=== PATIENT | female | born 1975 | race Caucasian/White ===

== ENCOUNTER 2017-06-28 17:28 | Emergency (ER) | payer OTHER ==
[~2017-06-28] VITALS: Ht 165.1 cm; Wt 81.8 kg
[2017-06-28 17:42] LABS: GLUCOSE,POINT OF CARE 339 MG/DL (70-110)
[2017-06-28] MEDS ORDERED: SODIUM CHLORIDE 0.9% 1,000 ML IV ONE ×2 (19:00→20:30)
[2017-06-28] MEDS ORDERED: ACETAMINOPHEN 325 MG TABLET PO ONE (19:00)
[2017-06-28 19:23] LABS: HEMATOCRIT 37.7 % (36-46); HEMOGLOBIN 13.1 g/dL (12.0-16.0); MEAN CORPUSCULAR HEMOGLOBIN 31.8 pg (26.0-34.0); MEAN CORPUSCULAR HGB CONC 34.7 G/dL (31.0-37.0); MEAN CORPUSCULAR VOLUME 92 fL (80-100); PLATELET COUNT (AUTO) 255 K/uL (150-450); RED BLOOD CELL COUNT(AUTO) 4.11 MIL/uL (4.00-5.20); RED CELL DISTRIBUTION WIDTH 12.7 % (11.5-14.5); WHITE BLOOD COUNT (AUTO) 13.4 K/uL (4.5-11.0)
[2017-06-28 19:37] LABS: ALBUMIN 3.3 g/dL (3.4-5.0); BILIRUBIN,TOTAL 1.5 mg/dL (0.1-1.0); CALCIUM, TOTAL 8.6 mg/dL (8.8-10.5); CREATININE 1.02 mg/dL (0.60-1.30); POTASSIUM 3.7 mmol/L (3.5-5.1); TOTAL PROTEIN, SERUM 7.2 g/dL (6.4-8.2)
[2017-06-28 19:55] LABS: BAND NEUTROPHILS % (MANUAL) 29 % (1-5); LYMPHOCYTES % (MANUAL) 4 % (22-44); RBC MORPHOLOGY COMMENT NORMAL RBC MORPH; TOTAL CELLS COUNTED 100
[2017-06-28 20:12] LABS: INFLUENZA TYPE B NEGATIVE FOR TYPE B (NEGATIVE)
[2017-06-28] MEDS ORDERED: SODIUM CHLORIDE 0.9% 1,000 ML IV STA (20:21)
[2017-06-28] MEDS ORDERED: CefTRIAXone 1 GM/DEXTROSE 50 ML IV ONE (20:30)
[2017-06-28] MEDS ORDERED: 0.9% SODIUM CHLORIDE 10 ML SYRINGE IVP PRN (20:30)
[2017-06-28] MEDS: VANCOMYCIN HCL 1 GM/D5% WATER 200 ML IV ONE ×2 (20:39→20:49)
[2017-06-28 20:56] LABS: APPEARANCE,URINE TURBID (CLEAR); GLUCOSE, URINE (UA) >=1000 mg/dL (NEGATIVE); KETONES,URINE TRACE mg/dL (NEGATIVE); LEUKOCYTE ESTERASE ,URINE MODERATE (NEGATIVE); OCCULT BLOOD,URINE LARGE (NEGATIVE); PH,URINE 5.5 (5.0-8.0); PROTEIN,URINE SEE CONFIRM (NEGATIVE)
[2017-06-28 21:09] LABS: SQUAMOUS EPITHELIAL CELL,UR Few /LPF (None Seen); SULFOSALICYLIC ACID,URINE 3+ (Negative); WBC,URINE 26-50 /HPF (0-5)
[2017-06-28 21:15] LABS: PROTHROMBIN TIME 10.6 SEC (9.4-11.6)
[2017-06-28] MEDS ORDERED: VANCOMYCIN HCL 1.5 GM in DEXTROSE 5%-WATER 250 ML IV ONE (21:30)
[2017-06-28] MEDS ORDERED: VANCOMYCIN HCL IV ONE (21:45)
[2017-06-28] MEDS ORDERED: SODIUM CHLORIDE 0.9% IV ONE (21:45)
[2017-06-28 22:35] VITALS: BP 124/75
[2017-06-28 23:02] LABS: GLUCOSE COMMENT 1 Doctor Notified; GLUCOSE,POINT OF CARE 458 MG/DL (70-110)
== END 2017-06-28 23:26 | disposition short-term general hospital (02) ==
LOC: EMS 17:30
DX: A41.9 Sepsis, unspecified organism (principal); N39.0 Urinary tract infection, site not specified; M79.1 Myalgia; E11.9 Type 2 diabetes mellitus without complications; I10 Essential (primary) hypertension; Z88.5 Allergy status to narcotic agent
CPT/HCPCS: 36415; 71010; 80053; 81001; 82962; 83605; 84703; 85025; 85610; 87040; 87077; 87086; 87186; 87804; 93005; 96361; 96365; 96366; 96368; 99291; J0696; J3370 ×2; J7030; J7050; J7060

== ENCOUNTER 2019-11-29 14:28 | Inpatient (IN) | payer OTHER ==
[~2019-11-29] VITALS: Ht 165.1 cm; Wt 92.0 kg
[2019-11-29] MEDS ORDERED: LISI-661 PO (14:41)
[2019-11-29] MEDS ORDERED: INSLAN SQ (14:41)
[2019-11-29] MEDS ORDERED: SODIUM CHLORIDE 0.9% 2,450 ML IV ONE (15:32)
[2019-11-29] MEDS ORDERED: ACETAMINOPHEN 1000 MG/ISO-OSM 100 ML IV ONE (15:45)
[2019-11-29] MEDS ORDERED: METOCLOPRAMIDE HCL 5 MG/ML 2 ML VIAL IVP ONE (15:45)
[2019-11-29] MEDS ORDERED: 0.9% SODIUM CHLORIDE 10 ML SYRINGE IVP PRN ×2 (15:45→20:00)
[2019-11-29 16:16] LABS: BASOPHILS % (AUTO) 0.2 % (0.0-2.0); EOSINOPHILS % (AUTO) 0 % (1.0-6.0); HEMATOCRIT 32.6 % (36-46); HEMOGLOBIN 10.8 g/dL (12.0-16.0); LYMPHOCYTES # (AUTO) 0.7 K/uL (1.0-4.8); LYMPHOCYTES % (AUTO) 22.1 % (22.0-44.0); MEAN CORPUSCULAR HEMOGLOBIN 30.2 pg (26.0-34.0); MEAN CORPUSCULAR VOLUME 91 fL (80-100); MONOCYTES # (AUTO) 0.3 K/uL (0.1-1.0); MONOCYTES % (AUTO) 8.5 % (2.0-9.0); NEUTROPHILS # (AUTO) 2.3 K/uL (1.8-7.7); NEUTROPHILS % (AUTO) 69.2 % (40.0-70.0); PLATELET COUNT (AUTO) 226 K/uL (150-450); RED BLOOD CELL COUNT(AUTO) 3.57 MIL/uL (4.00-5.20); RED CELL DISTRIBUTION WIDTH 12.4 % (11.5-14.5)
[2019-11-29] MEDS ORDERED: SODIUM CHLORIDE 0.9% 500 ML IV ONE (16:19)
[2019-11-29 16:28] LABS: PROTHROMBIN TIME 10.4 SEC (9.4-11.6)
[2019-11-29 16:32] LABS: ANION GAP 7 mmol/L (8-16); CALCIUM, TOTAL 8.3 mg/dL (8.8-10.5); CARBON DIOXIDE 31 mmol/L (22-29); CHLORIDE 97 mmol/L (98-107); CREATININE 0.71 mg/dL (0.60-1.30); GLOMERULAR FILTR. RATE CALC > 60 mL/min (>60); GLUCOSE,RANDOM 213 mg/dL (70-110); POTASSIUM 3.9 mmol/L (3.5-5.1); SODIUM SERUM 135 mmol/L (136-145); UREA NITROGEN, BLOOD 12 mg/dL (7-18)
[2019-11-29 16:40] LABS: LACTIC ACID 0.9 mmol/L (0.4-2.0)
[2019-11-29 16:45] LABS: PLATELET MORPHOLOGY COMMENT LARGE PLTS PRESENT
[2019-11-29 16:54] LABS: ALANINE AMINOTRANSFERASE 44 U/L (12-78); ALBUMIN 3.1 g/dL (3.4-5.0); ALKALINE PHOSPHATASE 102 U/L (46-116); ASPARTATE AMINOTRANSFERASE 25 U/L (15-37); BILIRUBIN,TOTAL 0.8 mg/dL (0.1-1.0); CREATINE KINASE, TOTAL ONLY 126 U/L (26-192); HCG,QUANTITATIVE 1 mIU/mL (0-6); LACTATE DEHYDROGENASE 280 U/L (81-234); TOTAL PROTEIN, SERUM 7.2 g/dL (6.4-8.2)
[2019-11-29 16:59] LABS: INFLUENZA TYPE A NEGATIVE FOR TYPE A (NEGATIVE); INFLUENZA TYPE B NEGATIVE FOR TYPE B (NEGATIVE)
[2019-11-29] MEDS ORDERED: AZITHROMYCIN 500 MG/NS 250 ML IV ONE (17:00)
[2019-11-29] MEDS ORDERED: CefTRIAXone 1 GM/DEXTROSE 50 ML IV ONE (17:00)
[2019-11-29] MEDS ORDERED: SODIUM CHLORIDE 0.9% 100 ML ONE (17:03)
[2019-11-29] MEDS ORDERED: IOVERSOL 350 MG/ML 100 ML VIAL ONE (17:04)
[2019-11-29 17:28] LABS: B-TYPE NATRIURETIC PEPTIDE 12 pg/mL (0-100)
[2019-11-29 17:29] LABS: D-DIMER 0.65 mg/L FEU (0.00-0.50)
[2019-11-29 17:31] LABS: C-REACTIVE PROTEIN QUANT 4.42 mg/dL (0.00-0.30); FERRITIN 87 ng/mL (8-252)
[2019-11-29 19:37] LABS: APPEARANCE,URINE CLEAR (CLEAR); GLUCOSE, URINE (UA) 100 mg/dL (NEGATIVE); KETONES,URINE 40 mg/dL (NEGATIVE); LEUKOCYTE ESTERASE ,URINE NEGATIVE (NEGATIVE); NITRATE,URINE NEGATIVE (NEGATIVE); OCCULT BLOOD,URINE NEGATIVE (NEGATIVE); PH,URINE 6.5 (5.0-8.0); PROTEIN,URINE SEE CONFIRM (NEGATIVE)
[2019-11-29 19:39] LABS: BILIRUBIN,URINE PRELIM. POSITIVE (NEGATIVE)
[2019-11-29 19:42] LABS: GLUCOSE,POINT OF CARE 186 MG/DL (70-110)
[2019-11-29 19:56] LABS: BACTERIA,URINE Rare /HPF (None Seen); RBC,URINE None Seen /HPF (0-2); SQUAMOUS EPITHELIAL CELL,UR Few /LPF (None Seen); SULFOSALICYLIC ACID,URINE 3+ (Negative); WBC,URINE 0-2 /HPF (0-5); YEAST,URINE None Seen /HPF (None Seen)
[2019-11-29] MEDS ORDERED: ACETAMINOPHEN 325 MG TABLET PO PRN (20:00)
[2019-11-29 20:44] LABS: GLUCOSE,POINT OF CARE 155 MG/DL (70-110)
[2019-11-29 22:36] VITALS: BP 147/86
[2019-11-29 23:12] LABS: GLUCOMETER DEV NAME(LOC) 5N.1; GLUCOSE,POINT OF CARE 181 MG/DL (70-110)
[2019-11-30] MEDS ORDERED: DEXTROSE 50%-WATER 25 GM/50 ML SYRINGE IVP PRN (02:45)
[2019-11-30] MEDS ORDERED: MAGNESIUM HYDROXIDE SUSPENSION 30 ML UDCUP PO PRN (02:45)
[2019-11-30] MEDS ORDERED: 0.9% SODIUM CHLORIDE 10 ML SYRINGE IVP PRN (02:45)
[2019-11-30] MEDS: HYDROXYCHLOROQUINE SULFATE 200 MG TABLET PO SCH ×2 (04:25→20:58)
[2019-11-30 04:29] VITALS: BP 125/61
[2019-11-30] MEDS: INSULIN LISPRO 100 UNITS/ML SQ PRN ×4 (05:43→21:19)
[2019-11-30 07:04] VITALS: BP 139/77
[2019-11-30 07:30] LABS: BASOPHILS % (AUTO) 0.3 % (0.0-2.0); EOSINOPHILS % (AUTO) 0.2 % (1.0-6.0); HEMATOCRIT 29.8 % (36-46); LYMPHOCYTES # (AUTO) 1.1 K/uL (1.0-4.8); LYMPHOCYTES % (AUTO) 29.9 % (22.0-44.0); MEAN CORPUSCULAR HEMOGLOBIN 30.9 pg (26.0-34.0); MEAN CORPUSCULAR HGB CONC 33.6 G/dL (31.0-37.0); MEAN CORPUSCULAR VOLUME 92 fL (80-100); MONOCYTES # (AUTO) 0.4 K/uL (0.1-1.0); MONOCYTES % (AUTO) 11.5 % (2.0-9.0); NEUTROPHILS # (AUTO) 2.1 K/uL (1.8-7.7); NEUTROPHILS % (AUTO) 58.1 % (40.0-70.0); PLATELET COUNT (AUTO) 200 K/uL (150-450); RED BLOOD CELL COUNT(AUTO) 3.24 MIL/uL (4.00-5.20); RED CELL DISTRIBUTION WIDTH 12.5 % (11.5-14.5)
[2019-11-30 08:01] LABS: ANION GAP 8 mmol/L (8-16); CARBON DIOXIDE 27 mmol/L (22-29); CHLORIDE 102 mmol/L (98-107); CREATININE 0.53 mg/dL (0.60-1.30); GLUCOSE,RANDOM 203 mg/dL (70-110); POTASSIUM 3.4 mmol/L (3.5-5.1); SODIUM SERUM 137 mmol/L (136-145); UREA NITROGEN, BLOOD 11 mg/dL (7-18)
[2019-11-30 08:02] LABS: ALANINE AMINOTRANSFERASE 37 U/L (12-78); ALBUMIN 2.6 g/dL (3.4-5.0); ALKALINE PHOSPHATASE 86 U/L (46-116); ASPARTATE AMINOTRANSFERASE 24 U/L (15-37); BILIRUBIN,TOTAL 0.6 mg/dL (0.1-1.0); CALCIUM, TOTAL 7.4 mg/dL (8.8-10.5); GLOMERULAR FILTR. RATE CALC > 60 mL/min (>60); TOTAL PROTEIN, SERUM 6.3 g/dL (6.4-8.2)
[2019-11-30] MEDS ORDERED: DOCUSATE SODIUM 100 MG CAPSULE PO SCH (09:00)
[2019-11-30] MEDS ORDERED: FAMOTIDINE 10 MG/ML 2 ML VIAL IVP SCH (09:00)
[2019-11-30] MEDS: HEPARIN SODIUM,PORCINE 5,000 UNITS/ML VIAL SQ SCH ×2 (09:02→20:58)
[2019-11-30] MEDS: ZINC SULFATE 220 MG CAPSULE PO SCH (09:02)
[2019-11-30] MEDS: ACETAMINOPHEN 325 MG TABLET PO PRN ×3 (09:08→20:57)
[2019-11-30] MEDS ORDERED: DOCUSATE SODIUM 100 MG CAPSULE PO PRN (10:30)
[2019-11-30] MEDS ORDERED: POTASSIUM CHLORIDE 20 MEQ ER TABLET PO PRN (11:00)
[2019-11-30] MEDS ORDERED: POTASSIUM CHL 10 MEQ/WATER 50 ML IV PRN (11:00)
[2019-11-30 11:02] VITALS: BP 144/72
[2019-11-30] MEDS: CefTRIAXone 1 GM/DEXTROSE 50 ML IV SCH (12:04)
[2019-11-30 15:59] VITALS: BP 153/78
[2019-11-30] MEDS: ONDANSETRON HCL 4 MG/2 ML VIAL IVP PRN ×2 (16:31→23:53)
[2019-11-30] MEDS: AZITHROMYCIN 500 MG/NS 250 ML IV SCH (17:39)
[2019-11-30 17:46] LABS: GLUCOMETER DEV NAME(LOC) 5S.1; GLUCOSE,POINT OF CARE 207 MG/DL (70-110)
[2019-11-30 19:10] VITALS: BP 140/75
[2019-11-30 19:46] LABS: GLUCOMETER DEV NAME(LOC) 5N.1; GLUCOSE,POINT OF CARE 191 MG/DL (70-110)
[2019-11-30 19:46] LABS: GLUCOMETER DEV NAME(LOC) 5N.1; GLUCOSE,POINT OF CARE 178 MG/DL (70-110)
[2019-11-30 22:51] LABS: GLUCOMETER DEV NAME(LOC) 5N.1; GLUCOSE,POINT OF CARE 151 MG/DL (70-110)
[2019-11-30 23:23] VITALS: BP 119/63
[2019-12-01] MEDS: ACETAMINOPHEN 325 MG TABLET PO PRN ×4 (03:44→20:20)
[2019-12-01 05:00] VITALS: BP 130/75
[2019-12-01] MEDS: INSULIN LISPRO 100 UNITS/ML SQ PRN ×4 (05:45→20:32)
[2019-12-01] MEDS: ONDANSETRON HCL 4 MG/2 ML VIAL IVP PRN ×2 (05:57→15:20)
[2019-12-01 07:14] VITALS: BP 117/71
[2019-12-01 08:14] LABS: BASOPHILS % (AUTO) 0.2 % (0.0-2.0); EOSINOPHILS % (AUTO) 0.2 % (1.0-6.0); HEMATOCRIT 28.2 % (36-46); HEMOGLOBIN 9.8 g/dL (12.0-16.0); LYMPHOCYTES # (AUTO) 0.8 K/uL (1.0-4.8); LYMPHOCYTES % (AUTO) 20.2 % (22.0-44.0); MEAN CORPUSCULAR HEMOGLOBIN 31.6 pg (26.0-34.0); MEAN CORPUSCULAR HGB CONC 34.8 G/dL (31.0-37.0); MEAN CORPUSCULAR VOLUME 91 fL (80-100); MONOCYTES # (AUTO) 0.3 K/uL (0.1-1.0); MONOCYTES % (AUTO) 6.9 % (2.0-9.0); NEUTROPHILS # (AUTO) 2.8 K/uL (1.8-7.7); NEUTROPHILS % (AUTO) 72.5 % (40.0-70.0); PLATELET COUNT (AUTO) 227 K/uL (150-450); RED BLOOD CELL COUNT(AUTO) 3.11 MIL/uL (4.00-5.20); RED CELL DISTRIBUTION WIDTH 12.1 % (11.5-14.5)
[2019-12-01 08:44] LABS: ANION GAP 7 mmol/L (8-16); CALCIUM, TOTAL 7.9 mg/dL (8.8-10.5); CARBON DIOXIDE 26 mmol/L (22-29); CHLORIDE 102 mmol/L (98-107); GLOMERULAR FILTR. RATE CALC > 60 mL/min (>60); GLUCOSE,RANDOM 198 mg/dL (70-110); POTASSIUM 3.9 mmol/L (3.5-5.1); SODIUM SERUM 135 mmol/L (136-145); UREA NITROGEN, BLOOD 7 mg/dL (7-18)
[2019-12-01] MEDS: CefTRIAXone 1 GM/DEXTROSE 50 ML IV SCH (08:53)
[2019-12-01] MEDS: ZINC SULFATE 220 MG CAPSULE PO SCH (08:53)
[2019-12-01] MEDS: HYDROXYCHLOROQUINE SULFATE 200 MG TABLET PO SCH ×2 (08:53→20:21)
[2019-12-01] MEDS: PANTOPRAZOLE SODIUM 40 MG DR TABLET PO SCH (08:53)
[2019-12-01] MEDS: HEPARIN SODIUM,PORCINE 5,000 UNITS/ML VIAL SQ SCH ×2 (08:54→21:00)
[2019-12-01 10:57] VITALS: BP 132/76
[2019-12-01 12:18] LABS: GLUCOMETER DEV NAME(LOC) 5S.2A; GLUCOSE,POINT OF CARE 187 MG/DL (70-110)
[2019-12-01 15:13] VITALS: BP 155/86
[2019-12-01] MEDS: AZITHROMYCIN 500 MG/NS 250 ML IV SCH (17:39)
[2019-12-01 20:00] VITALS: BP 137/78
[2019-12-01 20:01] LABS: GLUCOMETER DEV NAME(LOC) 5N.1; GLUCOSE,POINT OF CARE 197 MG/DL (70-110)
[2019-12-01 20:01] LABS: GLUCOMETER DEV NAME(LOC) 5N.1; GLUCOSE,POINT OF CARE 187 MG/DL (70-110)
[2019-12-02] VITALS (7 sets, daily range): BP systolic 138–159; BP diastolic 74–89
[2019-12-02] MEDS: INSULIN LISPRO 100 UNITS/ML SQ PRN ×4 (05:57→21:11)
[2019-12-02] MEDS: ACETAMINOPHEN 325 MG TABLET PO PRN ×3 (06:01→21:39)
[2019-12-02] MEDS: ONDANSETRON HCL 4 MG/2 ML VIAL IVP PRN (06:09)
[2019-12-02 07:25] LABS: BASOPHILS % (AUTO) 0.9 % (0.0-2.0); EOSINOPHILS % (AUTO) 0.4 % (1.0-6.0); HEMATOCRIT 31.9 % (36-46); HEMOGLOBIN 10.7 g/dL (12.0-16.0); LYMPHOCYTES # (AUTO) 1.3 K/uL (1.0-4.8); LYMPHOCYTES % (AUTO) 31.3 % (22.0-44.0); MEAN CORPUSCULAR HEMOGLOBIN 30.6 pg (26.0-34.0); MEAN CORPUSCULAR HGB CONC 33.6 G/dL (31.0-37.0); MEAN CORPUSCULAR VOLUME 91 fL (80-100); MONOCYTES # (AUTO) 0.4 K/uL (0.1-1.0); MONOCYTES % (AUTO) 9.1 % (2.0-9.0); NEUTROPHILS # (AUTO) 2.5 K/uL (1.8-7.7); NEUTROPHILS % (AUTO) 58.3 % (40.0-70.0); PLATELET COUNT (AUTO) 295 K/uL (150-450); RED BLOOD CELL COUNT(AUTO) 3.51 MIL/uL (4.00-5.20); RED CELL DISTRIBUTION WIDTH 12.5 % (11.5-14.5)
[2019-12-02 07:43] LABS: GLUCOMETER DEV NAME(LOC) 5N.1; GLUCOSE,POINT OF CARE 216 MG/DL (70-110)
[2019-12-02 07:43] LABS: GLUCOMETER DEV NAME(LOC) 5N.1; GLUCOSE,POINT OF CARE 185 MG/DL (70-110)
[2019-12-02 07:52] LABS: CALCIUM, TOTAL 8.7 mg/dL (8.8-10.5); CHLORIDE 102 mmol/L (98-107); CREATININE 0.57 mg/dL (0.60-1.30); GLOMERULAR FILTR. RATE CALC > 60 mL/min (>60); GLUCOSE,RANDOM 195 mg/dL (70-110); POTASSIUM 4.2 mmol/L (3.5-5.1); SODIUM SERUM 136 mmol/L (136-145); UREA NITROGEN, BLOOD 9 mg/dL (7-18)
[2019-12-02] MEDS: ZINC SULFATE 220 MG CAPSULE PO SCH (08:11)
[2019-12-02] MEDS: HYDROXYCHLOROQUINE SULFATE 200 MG TABLET PO SCH ×2 (08:11→21:09)
[2019-12-02] MEDS: PANTOPRAZOLE SODIUM 40 MG DR TABLET PO SCH (08:11)
[2019-12-02] MEDS: HEPARIN SODIUM,PORCINE 5,000 UNITS/ML VIAL SQ SCH ×2 (08:21→21:00)
[2019-12-02 08:31] LABS: ANION GAP 11 mmol/L (8-16); CARBON DIOXIDE 23 mmol/L (22-29)
[2019-12-02] MEDS: CefTRIAXone 1 GM/DEXTROSE 50 ML IV SCH (10:39)
[2019-12-02] MEDS: GuaiFENesin/D-METHORPHAN/PHENYLEPH 5 ML LIQUID ORAL.SYG PO PRN ×3 (13:12→22:19)
[2019-12-02] MEDS: HydrALAZINE HCL 25 MG TABLET PO SCH ×2 (13:12→21:09)
[2019-12-02 13:38] LABS: GLUCOMETER DEV NAME(LOC) 5N.1; GLUCOSE,POINT OF CARE 199 MG/DL (70-110)
[2019-12-02] MEDS: AZITHROMYCIN 500 MG/NS 250 ML IV SCH (17:17)
[2019-12-02] MEDS ORDERED: HydrALAZINE HCL 20 MG/ML VIAL IVP ONE (18:00)
[2019-12-02 23:54] LABS: GLUCOMETER DEV NAME(LOC) 5S.2A; GLUCOSE,POINT OF CARE 180 MG/DL (70-110)
[2019-12-03] VITALS: BP 145/76
[2019-12-03 03:20] LABS: GLUCOMETER DEV NAME(LOC) 5S.1; GLUCOSE,POINT OF CARE 184 MG/DL (70-110)
[2019-12-03 04:27] VITALS: BP 141/71
[2019-12-03] MEDS: INSULIN LISPRO 100 UNITS/ML SQ PRN ×4 (05:54→20:55)
[2019-12-03] MEDS: HEPARIN SODIUM,PORCINE 5,000 UNITS/ML VIAL SQ SCH ×2 (08:08→20:54)
[2019-12-03] MEDS: HYDROXYCHLOROQUINE SULFATE 200 MG TABLET PO SCH ×2 (08:13→20:54)
[2019-12-03] MEDS: PANTOPRAZOLE SODIUM 40 MG DR TABLET PO SCH (08:13)
[2019-12-03] MEDS: CefTRIAXone 1 GM/DEXTROSE 50 ML IV SCH (08:14)
[2019-12-03] MEDS: ZINC SULFATE 220 MG CAPSULE PO SCH (08:14)
[2019-12-03] MEDS: HydrALAZINE HCL 25 MG TABLET PO SCH ×2 (08:14→20:53)
[2019-12-03 08:22] VITALS: BP 153/80
[2019-12-03 08:25] LABS: GLUCOMETER DEV NAME(LOC) 5S.1; GLUCOSE,POINT OF CARE 223 MG/DL (70-110)
[2019-12-03] MEDS: ACETAMINOPHEN 325 MG TABLET PO PRN ×3 (09:24→21:37)
[2019-12-03 11:31] VITALS: BP 142/78
[2019-12-03 17:15] LABS: GLUCOMETER DEV NAME(LOC) 5N.1; GLUCOSE,POINT OF CARE 199 MG/DL (70-110)
[2019-12-03 17:16] VITALS: BP 152/79
[2019-12-03] MEDS: AZITHROMYCIN 500 MG/NS 250 ML IV SCH (17:23)
[2019-12-03 20:00] VITALS: BP 125/83
[2019-12-03 23:21] LABS: GLUCOMETER DEV NAME(LOC) 5S.1; GLUCOSE,POINT OF CARE 195 MG/DL (70-110)
[2019-12-03 23:21] LABS: GLUCOMETER DEV NAME(LOC) 5S.1; GLUCOSE,POINT OF CARE 204 MG/DL (70-110)
[2019-12-04] VITALS: BP 99/75
[2019-12-04 04:00] VITALS: BP 145/70
[2019-12-04] MEDS: INSULIN LISPRO 100 UNITS/ML SQ PRN ×4 (05:49→20:53)
[2019-12-04] MEDS: HEPARIN SODIUM,PORCINE 5,000 UNITS/ML VIAL SQ SCH ×2 (09:00→20:59)
[2019-12-04] MEDS: ZINC SULFATE 220 MG CAPSULE PO SCH (09:09)
[2019-12-04 09:10] VITALS: BP 153/87
[2019-12-04] MEDS: HydrALAZINE HCL 25 MG TABLET PO SCH ×2 (09:19→20:51)
[2019-12-04] MEDS: ACETAMINOPHEN 325 MG TABLET PO PRN ×2 (09:19→18:28)
[2019-12-04] MEDS: PANTOPRAZOLE SODIUM 40 MG DR TABLET PO SCH (09:20)
[2019-12-04] MEDS: HYDROXYCHLOROQUINE SULFATE 200 MG TABLET PO SCH ×2 (09:20→20:51)
[2019-12-04] MEDS: CefTRIAXone 1 GM/DEXTROSE 50 ML IV SCH (10:35)
[2019-12-04 11:21] LABS: GLUCOMETER DEV NAME(LOC) 5S.2A; GLUCOSE,POINT OF CARE 202 MG/DL (70-110)
[2019-12-04 12:00] VITALS: BP 140/90
[2019-12-04] MEDS: AZITHROMYCIN 500 MG/NS 250 ML IV SCH (18:05)
[2019-12-04 20:00] VITALS: BP 135/78
[2019-12-05] VITALS: BP 137/77
[2019-12-05 01:19] LABS: GLUCOMETER DEV NAME(LOC) 5N.1; GLUCOSE,POINT OF CARE 250 MG/DL (70-110)
[2019-12-05 01:19] LABS: GLUCOMETER DEV NAME(LOC) 5N.1; GLUCOSE,POINT OF CARE 204 MG/DL (70-110)
[2019-12-05 04:00] VITALS: BP 125/88
[2019-12-05] MEDS: INSULIN LISPRO 100 UNITS/ML SQ PRN ×2 (05:32→12:36)
[2019-12-05 07:01] LABS: GLUCOMETER DEV NAME(LOC) 5N.1; GLUCOSE,POINT OF CARE 244 MG/DL (70-110)
[2019-12-05 07:02] LABS: GLUCOMETER DEV NAME(LOC) 5S.1; GLUCOSE,POINT OF CARE 209 MG/DL (70-110)
[2019-12-05 08:00] VITALS: BP 149/87
[2019-12-05] MEDS: ZINC SULFATE 220 MG CAPSULE PO SCH (08:28)
[2019-12-05] MEDS: PANTOPRAZOLE SODIUM 40 MG DR TABLET PO SCH (08:28)
[2019-12-05] MEDS: HydrALAZINE HCL 25 MG TABLET PO SCH (08:29)
[2019-12-05] MEDS: HEPARIN SODIUM,PORCINE 5,000 UNITS/ML VIAL SQ SCH (08:42)
[2019-12-05] MEDS: CefTRIAXone 1 GM/DEXTROSE 50 ML IV SCH (11:29)
[2019-12-05 11:57] LABS: GLUCOMETER DEV NAME(LOC) 5S.1; GLUCOSE,POINT OF CARE 211 MG/DL (70-110)
[2019-12-05 12:00] VITALS: BP 143/74
[2019-12-05 13:29] LABS: BASOPHILS % (AUTO) 0.3 % (0.0-2.0); EOSINOPHILS % (AUTO) 1.4 % (1.0-6.0); HEMATOCRIT 34.1 % (36-46); HEMOGLOBIN 11.4 g/dL (12.0-16.0); LYMPHOCYTES # (AUTO) 1.1 K/uL (1.0-4.8); LYMPHOCYTES % (AUTO) 18.1 % (22.0-44.0); MEAN CORPUSCULAR HEMOGLOBIN 30.1 pg (26.0-34.0); MEAN CORPUSCULAR HGB CONC 33.5 G/dL (31.0-37.0); MEAN CORPUSCULAR VOLUME 90 fL (80-100); MONOCYTES # (AUTO) 0.5 K/uL (0.1-1.0); MONOCYTES % (AUTO) 8.9 % (2.0-9.0); NEUTROPHILS # (AUTO) 4.3 K/uL (1.8-7.7); NEUTROPHILS % (AUTO) 71.3 % (40.0-70.0); PLATELET COUNT (AUTO) 498 K/uL (150-450); RED BLOOD CELL COUNT(AUTO) 3.79 MIL/uL (4.00-5.20); RED CELL DISTRIBUTION WIDTH 12.5 % (11.5-14.5)
[2019-12-05 13:37] LABS: CALCIUM, TOTAL 9.2 mg/dL (8.8-10.5); POTASSIUM 4.4 mmol/L (3.5-5.1)
[2019-12-05 13:45] LABS: ALBUMIN 2.8 g/dL (3.4-5.0); BILIRUBIN,TOTAL 0.6 mg/dL (0.1-1.0); CREATININE 0.56 mg/dL (0.60-1.30); TOTAL PROTEIN, SERUM 7.8 g/dL (6.4-8.2)
[2019-12-05] MEDS ORDERED: HYDR25TA84 PO (14:42)
== END 2019-12-05 16:05 | disposition home or self-care (01) | DRG 137 ==
LOC: EMS 14:34 → 5N 20:34
PROVIDERS: ADMIT Internal Medicine; ATTEND Internal Medicine
DX: U07.1 COVID-19 (principal); E44.0 Moderate protein-calorie malnutrition; E11.65 Type 2 diabetes mellitus with hyperglycemia; J12.89 Other viral pneumonia; E87.1 Hypo-osmolality and hyponatremia; D63.8 Anemia in other chronic diseases classified elsewhere; S80.02XA Contusion of left knee, initial encounter; I10 Essential (primary) hypertension; Z68.33 Body mass index [BMI] 33.0-33.9, adult; V03.10XA Pedestrian on foot injured in collision with car, pick-up truck or van in traffic accident, initial encounter; Y93.01 Activity, walking, marching and hiking; Z88.6 Allergy status to analgesic agent; Y92.488 Other paved roadways as the place of occurrence of the external cause; Y99.8 Other external cause status
CPT/HCPCS: 71260; 72193; 74160; 82728; 83605; 83615; 84145; 85379; 85384; 86140; 87040; 87635; 87804; 93005; J0131; J0360; J0456; J0696; J1644; J2405; J2765; J3490; J7030; J7040; J7050